=== PATIENT | female | born 1995 | race Caucasian/White ===

== ENCOUNTER 2018-10-30 12:31 | Outpatient (REF) | payer MEDICAID, SELFPAY | END 2018-10-30 12:51 | LOC: NCHCN 12:31 | PROVIDERS: PCP Internal Medicine; Visit Provider Internal Medicine | DX: J02.9 Acute pharyngitis, unspecified (principal) | CPT/HCPCS: 87070 ==

== ENCOUNTER 2018-12-07 09:55 | Outpatient (REF) | payer MEDICAID, SELFPAY ==
--- NOTE | 2018-12-07 09:25 | PAPFT_PTH ---
PATIENT: Roxie Bello LOC: [facility] U#:[id number] AGE/SX: 23/F ROOM: RE12/07/[address]: Laura Paul NP : 1995 BED: DIS: 12/07/2018 SPEC #: [id number] RECD: 12/07/18 12:47 STATUS: DANNA MANZO #: [id number] BONI: 12/07/18 09:[address]: Laura Paul NP DEPT: [facility] Cytology RECD BY: Maggi Fermin ENTERED: 12/07/18 12:48 SP TYPE: PAPFT OTHR DR: Suraj Knowles Tissues: 1 - CX/ENDOCX FOR PAP SMEARS Procedures: PAP THIN PREP/UVM Screening HPV DNA PROBE Comments: [id number]
== END 2018-12-07 10:15 ==
LOC: LBN 09:55
PROVIDERS: PCP Internal Medicine; Visit Provider Nurse Practitioner Women's Health
DX: Z12.4 Encounter for screening for malignant neoplasm of cervix (principal)
CPT/HCPCS: 88142; 87624

== ENCOUNTER 2019-03-19 13:22 | Outpatient (REF) | payer MEDICAID, SELFPAY ==
[2019-03-21 14:16] LABS: Chlamydia Result Negative (Negative)
[2019-03-21 16:31] LABS: GC Result Negative (Negative)
== END 2019-03-19 13:42 ==
LOC: NCHCN 13:22
PROVIDERS: PCP Internal Medicine; Visit Provider Nurse Practitioner Family
DX: Z11.3 Encounter for screening for infections with a predominantly sexual mode of transmission (principal)
CPT/HCPCS: 87491; 87591

== ENCOUNTER 2020-11-23 01:27 | Outpatient (CLI) | payer MEDICAID, SELFPAY ==
--- NOTE | 2020-11-23 07:15 | DI.US_ITS ---
Exam(s) US BREAST LT COMPLETE US BREAST RT COMPLETE EXAM: US BREAST BILATERAL COMPLETE CLINICAL HISTORY: increased breast tenderness, R>L. TECHNIQUE: Complete ultrasound of BOTH breasts was performed including all 4 quadrants, the retroare olar regions, and the axillary regions. COMPARISON: No prior mammograms. Patient is 25 years old is complaining about pre menses breast ten derness. FINDINGS: There is no evidence of solid or significant cystic lesions in all 4 quadrants of both breasts. Both retroareolar regions are negative No findings in the right axilla. The left axilla there are few lymph nodes noted, largest measuring 13 x 5 millimeters. This is the side of her recent Covid injectiion. IMPRESSION: Negative bilateral breast ultrasound Few small lymph nodes are noted left axilla. This is a sign of a recent vaccination 4 Covid-19 BI-RADS Category 2 - Benign Findings Breast Density - Category D - Extremely dense Breast density Category C or D implies that the patient has dense breast tissue. Dense breast tissue can make it harder to find cancer on a mammogram. Dense breast tissue is also associated with an incr eased risk of breast cancer. This information about the result of the mammogram report was provided to the patient to raise their awareness. Use this report when you speak with the patient about their risks for breast cancer, which includes their family history. At that time, you may recommend additional screening tests (Ultrasoun d or MRI) as these tests may add significant information. A negative radiographic report should not delay biopsy if a dominant or clinically suspicious mass is present. Up to ten percent of cancers are not identified on mammography. A negative report may reinforce clinical impression. Adenosis and dense breasts may obscure an underlying neoplasm. False positive reports average 6 to 10%. Patient will receive a letter notifying them of these results.
== END 2020-11-23 01:47 ==
PROVIDERS: PCP Internal Medicine; Visit Provider Nurse Practitioner Women's Health
DX: N60.11 Diffuse cystic mastopathy of right breast (principal); N60.12 Diffuse cystic mastopathy of left breast; R92.8 Other abnormal and inconclusive findings on diagnostic imaging of breast
CPT/HCPCS: 76642

== ENCOUNTER 2021-12-12 02:42 | Emergency (ER) | payer MEDICAID, SELFPAY ==
--- NOTE | 2021-12-12 02:44 | W.ED.GENAD ---
Discharge Plan Disposition Patient Disposition: HOME Condition: Stable Discharge Details Clinical Impression: Broken tooth, Infected dental caries Primary Care Provider: Suraj Knowles ED Provider: Lavinia Gifford Home Meds and New Rx's Prescriptions: New penicillin V potassium 500 mg tablet 500 mg PO QID 7 Days Qty: 28 0RF Continued norgestimate-ethinyl estradiol [Sprintec (28)] 0.25-35 mg-mcg tablet 1 tab PO DAILY Qty: 84 4RF Discharge Instructions Instructions: Dental Caries (ED), Acute Dental Trauma (ED) Additional Instructions: Your symptoms may be due to developing dental infection or secondary to nerve pain from your broken tooth. Drink plenty of fluids and get plenty of rest. Alternate tylenol and motrin as needed and directed for pain. Take the tramadol for pain not relieved with Tylenol or Motrin. A prescription for penicillin has been sent electronically to [facility] in [facility]. Call your dentist on Monday for follow-up. Return immediately to the emergency department if you develop any worsening or new concerning symptoms. Discharge Data Discharge Physician: Lavinia Gifford Medical Decision Making 26-year-old female presents with right lower dental pain for the past 2 days. She reports a history of broken teeth in this area 1 year ago but has not had pain until the past 2 days. Denies fever. She has fillings noted in teeth #29-32 right lower jaw. #31-32 are broken with missing parts and tender to palpation with mild surrounding edema but no obvious abscess. Normal oropharynx. No drooling, trismus or submandibular swelling. Will cover with prophylactic antibiotics. We will give tramadol bottle to go. Patient advised to call her dentist on Monday for follow-up. Usual and customary return precautions given prior to discharge. Medical Records Medical records reviewed: Yes I reviewed the patient's medical records. HPI General Mode of arrival: ambulatory. Date/Time Provider Initiated Documentation: 12/12/21 02:43. Limitations to Documentation: no limitations. Information obtained by: patient. HPI Narrative: Patient is a 26-year-old female presents with right lower dental pain for the past 2 days, worse this morning. Patient states she broke her teeth in the right lower jaw a year ago but has not had pain until the past 2 days. She denies any known fever. She denies any relief ibuprofen or Tylenol. Related Data Home Medications Medication Instructions Recorded Confirmed norgestimate 0.25 mg-ethinyl 1 tab PO DAILY #84 tabs 11/16/21 12/12/21 estradiol 35 mcg tablet (Sprintec (28)) penicillin V potassium 500 mg 500 mg PO QID 7 days #28 tabs 12/12/21 tablet Previous Rx's Medication Instructions Recorded norgestimate 0.25 mg-ethinyl 1 tab PO DAILY #84 tabs 11/16/21 estradiol 35 mcg tablet (Sprintec (28)) penicillin V potassium 500 mg 500 mg PO QID 7 days #28 tabs 12/12/21 tablet Allergies Allergy/AdvReac Type Severity Reaction Status Date / Time No Known Allergies Allergy Verified 12/12/21 02:53 General Stated Complaint: DentalOral Review of Systems All systems reviewed & are unremarkable except as noted in HPI and below Constitutional Constitutional: Reports as per HPI, Denies chills and Denies fever(s) Eyes Eyes: Denies blurry vision ENT Ears, Nose, Mouth, and Throat: Denies dizziness, Denies sore throat and Denies throat swelling Cardiovascular Cardiovascular: Denies chest pain and Denies dyspnea Respiratory Respiratory: Denies cough and Denies dyspnea Gastrointestinal Gastrointestinal: Denies abdominal pain, Denies diarrhea and Denies vomiting Genitourinary Genitourinary: Denies hematuria and Denies dysuria Musculoskeletal Musculoskeletal: Denies back pain and Denies numbness Integumentary/Breasts Skin/Breast: Denies lesions and Denies rash Neurologic Neurologic: Denies dizziness, Denies localized weakness and Denies numbness Allergic/Immunologic Allergic/Immunologic: Denies throat swelling PFSH All Active Problems (Updated 12/12/21 @ 03:07 by Lavinia Gifford DO) Broken tooth (Acute) Infected dental caries (Acute) Initiation of OCP (BCP) (Acute) 12/2020. Unsuccessful. Pt reports feeling aggressive while using pills for a week. Stopped after a week. Medical History (Updated 12/12/21 @ 03:07 by Lavinia Gifford DO) Contraception Initially used OCPs, Nexplanon for 1.5yrs removed with irreg bleeding. 12/2020 OCPs x1w made her tuttle. 03/2021. Using condoms. Mastalgia 12/2020 resolved after taking OCPs for one week. Surgical History (Updated 12/12/21 @ 03:07 by Lavinia Gifford DO) History of tonsillectomy Family History (Updated 12/07/18 @ 09:36 by Laura Paul NP) Brother Asthma Sister Asthma Maternal Grandfather Stomach cancer Social History (Updated 12/07/18 @ 09:39 by Laura Paul NP) Smoking/Tobacco Use Status: Never Smoking risk assessment performed?: Yes Alcohol Intake: current Alcohol Intake frequency: a few times a week Counseling given: No (pt declined) Drug use: Daily Substance use type: marijuana Do you feel safe in your relationship?: Yes Female Reproductive History Menstrual control method: none and condoms History History 0 Para Hx # Term Pregnancies Multiple births Hx # Pregnancies Ectopic pregnancies AB induced Hx Number of Living Children AB spontaneous Exam Const General: cooperative, healthy appearing and no acute distress Orientation: alert, awake and oriented x3 HENMT Head: normal to inspection Ears: hearing grossly normal bilaterally, external ears normal and TM's normal bilaterally General nose exam: external nose normal Mouth: oral mucosae normal Teeth image: 1. Broken and missing parts of teeth. There is surrounding tenderness to palpation and mild edema but no fluctuance, induration, pus drainage or bleeding. Throat: posterior oropharynx normal Eyes General: appearance normal, both eyes and all related structures Neck Neck: normal visual inspection Resp Effort & Inspection: normal respiratory effort and able to speak in complete sentences Cardio Rate: regular rate Skin General skin exam: no rashes or lesions noted Neuro General: patient alert, patient awake and patient oriented x3 Motor: muscle tone normal throughout Extrem General: normal to inspection and full ROM Psych Appearance: grossly normal Affect: normal affect
[2021-12-12 02:49] VITALS: BP 138/90; PULSE 52; RESP 16; TEMP 36.9; O2SAT 100
--- OUTSIDE RECORDS SUMMARY | 2021-12-12 02:50 | XMS_ITS | Encounter Summary ---
:1995 Author Organization [place] [address] Care Team Providers Name Role Phone Suraj Knowles MD Primary Care Provider Reason for Referral Consultation (Routine) - Duplicate Referral Specialty Diagnoses / Procedures Referred By Contact Refer red To Contact Sleep Center Diagnoses Excessive daytime sleepiness Mariana Webb MD [facility] Sleep Medicine [facility] [address] [place]EP [place] [address] [place] [address] Referral ID Status Reason Start Expiration Visits Visits Date Date Requested Authorized [id number] Duplicate Test Only 11/23/2017 11/23/2018 1 1 Referral Encounter Details Date Type Department Care Team Description 11/23/2017 Telephone Sleep Center at [facility] Kacy Dawkins [address] [place] [address] Social History Tobacco Use Types Packs/Day Years Used Date Never Smoker Smokeless Tobacco: Never Used Sex Assigned at Date Recorded Not on file documented as of this encounter Miscellaneous Notes Telephone Encounter - Mariana Webb MD - 11/23/2017 2:50 PM EDT Will order PSG Mariana Webb MD Telephone Encounter - Kacy Dawkins - 11/23/2017 1:43 PM EDT Please write the sleep study order for this patient originally seen with Dr. Rees, scheduled on 11/29. 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
--- OUTSIDE RECORDS SUMMARY | 2021-12-12 02:50 | XMS_ITS | Encounter Summary ---
:1995 Author Organization [facility] [place] [address] Care Team Providers Name Role Phone Suraj Knowles MD Primary Care Provider Reason for Visit Reason Comments Other tonsilitis Encounter Details Date Type Department Care Team Description 06/15/2018 Office Visit Otolaryngology at [facility] Camelia Carranza MD Throat pain; [facility] Bruxism (teeth grinding) [place] [address] [place] [address] OTOLARYNGOLOGY [place], [place] [address] Social History Tobacco Use Types Packs/Day Years Used Date Never Smoker Smokeless Tobacco: Never Used Sex Assigned at Date Recorded Not on file documented as of this encounter Last Filed Vital Signs Vital Sign Reading Time Taken Comments Blood Pressure - - Pulse - - Temperature - - Respiratory Rate - - Oxygen Saturation - - Inhaled Oxygen Concentration - - Weight 66.3 kg (146 lb 1.6 oz) 06/15/2018 1:38 PM EST Height 172.7 cm (5' 8) 06/15/2018 1:38 PM EST Body Mass Index 22.21 06/15/2018 1:38 PM EST documented in this encounter Progress Notes Camelia Carranza MD - 06/15/2018 1:40 PM EST [facility] Otolaryngology - Head and Neck Surgery Camelia Carranza MD 06/15/18 1:51 PM [place], [place] [address] Office Patient Name: Roxie Bello Date of : 1995 PCP: Suraj Knowles MD Chief Complaint: throat pain History of Present Illness: Roxie Bello is a 22 y.o. year old female seen in follow up. Has been seen in our clinic previously with chronic throat pain. Does get tonsil stones at times. States she has a sore throat several times per week, it usually resolves after a day or so. No issues with recurrent tonsillitis other than the past few months. Has a h/o hypersomnia, but sleep study without evidence of sleep apnea. Does grind her teeth, is currently getting fitted for a mouthguard. Has been on antibiotics several times in the last few months, states this has not improved her throat pain. No dysphagia or odynophagia. No hemoptysis or hematemesis. Otherwise doing well. 10 point Review of Systems was normal except for pertinent positives and negatives included in the History of Present Illness. Past Medical and Surgical History Patient Active Problem List Diagnosis Code ??? Hypersomnia G47.10 Current Outpatient Medications on File Prior to Visit Medication Sig Dispense Refill ??? SF 5000 PLUS 1.1 % Cream 1 Units as needed. 0 ??? etonogestrel (NEXPLANON) 68 mg Implant 68 mg by Subdermal route Continuous (Device). Expected removal date 09/2019 ??? citalopram (CELEXA) 40 mg Tablet 0 ??? NASAL SPRAY 0.05 % [place], Non-Aerosol 0 ??? multivitamin (THERAGRAN) Tablet Take 1 tablet by mouth daily. No current facility-administered medications on file prior to visit. Allergies: Patient has no known allergies. Surgical History: No past surgical history on file. Family and Social History Family History: No family history on file. Social History: [place] [address] Social History Socioeconomic History ??? Marital status: Single Spouse name: Not on file ??? Number of children: Not on file ??? Years of education: Not on file ??? Highest education level: Not on file Social Needs ??? Financial resource strain: Not on file ??? Food insecurity - worry: Not on file ??? Food insecurity - inability: Not on file ??? Transportation needs - medical: Not on file ??? Transportation needs - non-medical: Not on file Occupational History ??? Not on file Tobacco Use ??? Smoking status: Never Smoker ??? Smokeless tobacco: Never Used Substance and Sexual Activity ??? Alcohol use: Not on file ??? Drug use: Not on file ??? Sexual activity: Not on file Other Topics Concern ??? Not on file Social History Narrative ??? Not on file Physical Exam Temperature: Heart Rate: Blood Pressure: Respiratory Rate: SpO2: General: Age appropriate, healthy appearing, well-groomed, independently mobile. Communicates easily, speech clear, voice is strong. Awake, alert, and oriented to person, place and time. Affect appropriate. Head and Face: Head is normocephalic, atraumatic. Facial resting tone symmetric. Eyes: Conjugate gaze, ocular motility intact bilaterally. PERRL. Neurologic: Cranial Nerves II-XII grossly intact and symmetric. Ears: External ear and ear canal are without deformity. Hearing is grossly normal. Nose: External nose is midline without deformity or lesion. Anterior rhinoscopy reveals a straight septum, healthy mucosa, turbinates normal in size. Oral: There are no visible or palpable buccal, gingival, lingual, or palatal lesions. The floor of mouth is soft and flat. Dentition is in good repair. Oropharynx: Symmetric without tonsillar pathology. Tonsils 2+ and cryptic, no erythema or exudate. No other concerning lesions or masses Larynx:No hoarseness or stridor. External laryngeal structures normal to palpation. Face and sinuses are non tender. Salivary glands are soft, non tender, without palpable masses. [place]eter tightening noted bilaterally. Neck: Symmetric. No scars, palpable masses, or crepitus. Midline trachea. Thyroid normal in size, non tender, no palpable mass. Lymphatic: no palpable cervical lymphadenopathy. Pulmonary: Breathing comfortably. Symmetric chest expansion without use of accessory muscles or retraction. Skin: Good skin turgor, no pallor, no icterus. Extremities: No gross deformities, no peripheral edema. ASSESSMENT & RECOMMENDATIONS Roxie Bello is a 22 y.o. female with chronic throat pain, ?chronic tonsillitis. Given her poor response to antibiotics, I'm not convinced that her pain is due to classic tonsillitis. She may have generalized throat and neck pain related to her TMJ/teeth grinding. Recommendations: 1. I've recommended seeing how she does once she is fitted for her mouth guard. If no improvement after a month or so, she will notify me and we can discuss tonsillectomy then. Otherwise f/u prn. 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
--- OUTSIDE RECORDS SUMMARY | 2021-12-12 02:50 | XMS_ITS | Encounter Summary ---
:1995 Author Organization [facility] [place] [address] Care Team Providers Name Role Phone Suraj Knowles MD Primary Care Provider Encounter Details Date Type Department Care Team Description 02/22/2018 Office Visit Sleep Center at Mariana Webb MD Excessive daytime [address] [facility] sleepiness [address] [place] SLEEP DISORD[place] [address] CENTER [phone] [place], [place] [address] (Wo rk) Social History Tobacco Use Types Packs/Day Years Used Date Never Smoker Smokeless Tobacco: Never Used Sex Assigned at Date Recorded Not on file documented as of this encounter Last Filed Vital Signs Vital Sign Reading Time Taken Comments Blood Pressure 112/64 02/22/2018 10:10 AM EDT Pulse 68 02/22/2018 10:10 AM EDT Temperature - - Respiratory Rate - - Oxygen Saturation 100% 02/22/2018 10:10 AM EDT Inhaled Oxygen Concentration - - Weight 64.9 kg (143 lb) 02/22/2018 10:10 AM EDT Height 172.7 cm (5' 8) 02/22/2018 10:10 AM EDT Body Mass Index 21.74 02/22/2018 10:10 AM EDT documented in this encounter Progress Notes Mariana Webb MD - 02/22/2018 10:00 AM EDT SLEEP MEDICINE FOLLOW UP Chief Complaint: Follow up for excessive daytime sleepiness HPI: Roxie Mcdermott Eugenia is a 22 y.o. female with chronic pharyngitis, tonsillar hypertrophy, anxiety/depression, presenting for follow up of excessive daytime sleepiness. Previous testing ruled out obstructive sleep apnea as a factor of her symptoms. Summary of Sleep Studies 10/2017 HST Non-diagnostic 11/2017 Diagnostic PSG AHI 3 ([facility] AHI 0.5) The patient states that since last visit, she has tried to extend her sleep hours, and was successful by approximately half an hour. Currently she gets about 8 hours of sleep, from 10pm-6am nightly. She continues to feel sleepiness daily, despite the change. Further Details: Severity: Severe sleepiness Frequency: Daily - especially while as a passenger in the car Also feels sleepy if needing to drive long distances Duration: Throughout the day Over time: No improvement despite changes. Has become more tired in the last year. Modifying factors: None known The sleepiness was initially noticed by her father around last year. She is unable to pinpoint any precipitating factors or events that started with the sleepiness. She denies any coinciding of the sleepiness with changes in her citalopram. Ms. Bello also notes that she continues to suffer from chronic pharyngitis and sore throat. She has not experienced any new infections recently. She is currently deciding on whether or not to have the electively removed. Questionnaires: Patient-reported scores: [facility] 02/22/2018 [facility] 8 Insomnia Severity Index 11 (Subthreshold insomnia) [facility] 10/25/2017 02/22/2018 [facility] 15 (High Risk) 8 Insomnia Severity Index 13 (Subthreshold insomnia) 11 (Subthreshold insomnia) ROS: CON: weight change: stable ENT: nasal obstruction: no, + frequent sore throat PUL: CIFUENTES: no CV: chest pain: no GI: GERD: no : Nocturia: no PSY: Depression: stable on medications Anxiety: stable Problem List: Patient Active Problem List Diagnosis Code ??? Hypersomnia G47.10 Past Medical History: Past Medical History: Diagnosis Date ??? Hypersomnia 12/08/2017 Medications: Current Outpatient Medications on File Prior to Visit Medication Sig Dispense Refill ??? NASAL SPRAY 0.05 % [place], Non-Aerosol 0 ??? multivitamin (THERAGRAN) Tablet Take 1 tablet by mouth daily. ??? citalopram (CELEXA) 40 mg Tablet 0 ??? [DISCONTINUED] penicillin v potassium (VEETID) 500 mg Tablet take 1 tablet by mouth twice a day for 10 days 0 ??? [DISCONTINUED] azithromycin (ZITHROMAX) 250 mg Tablet take 2 tablets by mouth today then take 1 tablet DAILY FOR 4 DAYS 0 No current facility-administered medications on file prior to visit. Family History: Grandfather - sleep apnea Physical Exam: Vitals: BP 112/64 (BP Location (NBP): Right arm, Patient Position: Sitting, BP Cuff Sizes: Adult (25-34 cm)) Pulse 68 Ht 172.7 cm (5' 8) Wt 64.9 kg (143 lb) SpO2 100% BMI 21.74 kg/m?? General: pleasant 22 y.o. female, no distress, but appears tired HEENT: Head- normocephalic, Eyes- EOMI Pharynx- no tonsillitis, cobblestoning of posterior wall Heart: Normal heart sounds, at regular rate, no murmurs Lungs: CTA bilaterally, good respiratory effort Neuro: No tics/tremors No gait abnormalities Psych: Appropriate affect Assessment: Roxie Bello is a 22 y.o. female seen in follow-up for symptoms of persistent excessive daytime sleepiness. The patient has tried sleep extension, without significant effect in her symptoms. For her age group, the patient may try further sleep extension towards 9 hours nightly. Sleep apnea was ruled out as a cause of her sleepiness. Diagnoses including narcolepsy or idiopathichypersomnia can be considered in this age group. She does not endorse any classic symptoms of narcolepsy, cataplexy, sleep paralysis, or sleep hallucinations at this time. Testing would include repeating an overnight polysomnogram followed immediately by an MSLT with urine drug testing. An actigraphy would be completed 2 weeks before the MSLT. Of note, the patient takes an SSRI, which may affect testing if desired. Testing on the medication may proceed if she is unable to wean off the medication. The patient is also deciding on whether or not to proceed with elective tonsillectomy. Chronic illness may be a contributing factor to chronic fatigue and sleepiness. The patient would like to be re-evaluated by ENT to pursue this further. She will decide on PSG/MSLT after possible intervention with ENT. Recommendations: 1) Re-evaluation with ENT for elective tonsillectomy 2) PSG with MSLT after tonsillectomy if sleepiness persists 3) Patient will need to coordinate/discuss weaning from SSRI if further testing desired 4) Trial of sleep extension to 9 hours/night Patient voices understanding and acceptance of this advice and will call back if any further questions or concerns. Discussed with attending Dr. Braun. Mariana Webb MD Sleep Fellow CC: Suraj Knowles MD Shayla Braun MD - 02/22/2018 10:00 AM EDT I evaluated Ms. Roxie Bello with Dr. Webb and performed romano aspects of the history and examination. I actively participated in the formulation of the management strategy. I have reviewed Dr. Webb's note and agree with the assessment and recommendations. Patient is debating about whether to proceed with tonsillectomy due to symptoms. We discussed further evaluation for a primary hypersomnia. She is currently on an SSRI which may reduce detection of REM sleep during naps; however, given her mood stability on this medication, stopping it does not seem like the best option. Plan: Patient to contact ENT and will decide if tonsillectomy will be done. When done (or if she elects not to do) and persistent hypersomnia is evident, then proceed to sleep logs, actigraphy, followed by PSG and MSLT (based on her normal sleep schedule). She will call to letus know. SHAYLA BRAUN MD documented in this encounter Plan of Treatment Not on filedocumented as of this encounter Visit Diagnoses Diagnosis Excessive daytime sleepiness documented in this encounter Care Teams Fitter'S Assistant Relationship Specialty Start Date End Date Suraj Knowles MD PCP - General Internal Medicine 08/02/17 [address] [place] [address] documented as of this encounter
--- OUTSIDE RECORDS SUMMARY | 2021-12-12 02:50 | XMS_ITS | Encounter Summary ---
:1995 [place] [address] Care Team Providers Name Role Phone Suraj Knowles MD Primary Care Provider Reason for Referral Consultation (Routine) - Duplicate Referral Specialty Diagnoses / Procedures Referred By Contact Refer red To Contact Sleep Center Diagnoses Enlarged tonsils Mariana Webb MD [facility] Sleep Medicine [facility] [address] [place] [address] [place] [address] Referral ID Status Reason Start Expiration Visits Visits Date Date Requested Authorized [id number] Duplicate Test Only 11/23/2017 11/23/2018 1 1 Referral Encounter Details Date Type Department Care Team Description 11/23/2017 Orders Only Sleep Center at [facility] Mariana Webb MD Enlarged tonsils [facility] [address] [place] [address] [place] [address] [phone] (Wo rk) Social History Tobacco Use Types Packs/Day Years Used Date Never Smoker Smokeless Tobacco: Never Used Sex Assigned at Date Recorded Not on file documented as of this encounter Progress Notes Mariana Webb MD - 11/23/2017 2:52 PM EDT Polysomnogram Order Form Room # Technologist Assignment: To be read by on PSG Patient Information Date of study: : 1995 Arrival Time: Name: Roxie Bello 22 y.o. female with anxiety/depression and chronic pharyngitis who presents from ENT for sleep study, considering possible tonsillectomy Height: 172.7 cm (5' 8) Weight: 64.3 kg (141 lb 12.8 oz) Normal Sleep Hours: 10PM - 6:30AM Physical/Mobility Limitations: No Cognitive Limitations: No Requires Male Tech: No Requires Female Tech: No Requires 1:1 Care: No Requires Parent/Caregiver: No Using Home Oxygen: No At home sleeps in: Bed PSG Indications: Snoring, daytime sleepiness, enlarged tonsils. Non-diagnostic HST Other Medical Conditions: Anxiety/depression, chronic pharyngitis PSG Orders Type of study: Diagnostic PSG, split for AHI >30 (CMS >10) Additional data required: None Special instructions: Start CPAP *Initiate CPAP/BPAP/oxygen per previously determined protocols unless otherwise specified. documented in this encounter Plan of Treatment Scheduled Referrals Name Type Priority Associated Diagnoses Order S chedule Referral to Sleep Outpatient Referral Routine Enlarged tonsils Ordered: [facility] 11/23/2017 documented as of this encounter Visit Diagnoses Diagnosis Enlarged tonsils Hypertrophy of tonsils alone documented in this encounter Care Teams Block Press Operator Relationship Specialty Start Date End Date Suraj Knowles MD PCP - General Internal Medicine 08/02/17 [address] [place] [address] documented as of this encounter
--- OUTSIDE RECORDS SUMMARY | 2021-12-12 02:50 | XMS_ITS | Clinical Summary ---
:1995 Author Organization [facility] [place] [address] Care Team Providers Name Role Phone Suraj Knowles MD Primary Care Provider Allergies No known active allergies Medications Medication Sig Dispensed Refills Start Date End Date Status citalopram (CELEXA) 0 09/09/2017 Active 40 mg Tablet NASAL SPRAY 0.05 % 0 06/09/2017 Active [place], Non-Aerosol multivitamin Take 1 tablet by 0 Active (THERAGRAN) Tablet mouth daily. SF 5000 PLUS 1.1 % 1 Units as needed. 0 01/22/2018 Active Cream etonogestrel 68 mg by Subdermal 0 Active (NEXPLANON) 68 mg route Continuous Implant (Device). Expected removal date 09/2019 Active Problems Problem Noted Date Throat pain 06/18/2018 Bruxism (teeth grinding) 06/18/2018 Hypersomnia 12/08/2017 Social History Tobacco Use Types Packs/Day Years Used Date Never Smoker Smokeless Tobacco: Never Used Sex Assigned at Date Recorded Not on file Last Filed Vital Signs Vital Sign Reading Time Taken Comments Blood Pressure 112/64 02/22/2018 10:10 AM EDT Pulse 68 02/22/2018 10:10 AM EDT Temperature - - Respiratory Rate 16 11/29/2017 8:00 PM EDT Oxygen Saturation 100% 02/22/2018 10:10 AM EDT Inhaled Oxygen Concentration - - Weight 66.3 kg (146 lb 1.6 oz) 06/15/2018 1:38 PM EST Height 172.7 cm (5' 8) 06/15/2018 1:38 PM EST Body Mass Index 22.21 06/15/2018 1:38 PM EST Plan of Treatment Health Maintenance Due Date Last Done Comments Covid-19 Vaccine (#1) 2002 HPV vaccine (1 - 2-dose series) 2008 Chlamydia Screening, female 15-25 2012 HIV screen 09/23/2015 Hepatitis C Screening 09/23/2015 Tdap adult 2016 Tetanus vaccine 2016 PAP Smear 2018 Influenza (Flu) vaccine (1 of 1 - Influenza standard 01/06/2022 series) Insurance Payer Benefit Plan / Subscriber ID Effective Dates Phone Addre ss Type Group [place] [id number] 2018-Pres [phone] [address] PRIMARY CARE ent [address] [place] [id number] Care Teams Statistical Secretary Relationship Specialty Start Date End Date Suraj Knowles MD PCP - General Internal Medicine 08/02/17 [address] [place], [place] [id number]
--- OUTSIDE RECORDS SUMMARY | 2021-12-12 02:51 | XMS_ITS | Encounter Summary ---
:1995 Author Organization [facility] [place] [address] Care Team Providers Name Role Phone Suraj Knowles MD Primary Care Provider Reason for Visit Reason Comments Schedule Office Case Tonsils swollen x few month s Consultation (Routine) - Closed Specialty Diagnoses / Procedures Referred By Contact Refer red To Contact Otolaryngology Diagnoses Pharyngitis recurrent Suraj Knowles MD Porter, Amber L, HOT PATCHER [address] [place] [address] [address] [facility] [place], [place] [address] Phone: Fax: Referral ID Status Reason Start Date Expiration Date Visits V isits Requested Authorized [id number] Closed Consult, 10/03/2017 10/03/2018 1 1 Test & Treat Connection Center Encounter Details Date Type Department Care Team Description 10/13/2017 Office Visit Otolaryngology at [facility] Anabel Dozier, Throat pain in adult [facility] [place] [address] [facility] [phone] [place], [place] [address] Social History Tobacco Use Types Packs/Day Years Used Date Never Smoker Smokeless Tobacco: Never Used Sex Assigned at Date Recorded Not on file documented as of this encounter Last Filed Vital Signs Vital Sign Reading Time Taken Comments Blood Pressure - - Pulse - - Temperature - - Respiratory Rate - - Oxygen Saturation - - Inhaled Oxygen Concentration - - Weight 64.3 kg (141 lb 12.8 oz) 10/13/2017 10:21 AM EDT Height 172.7 cm (5' 8) 10/13/2017 10:21 AM EDT Body Mass Index 21.56 10/13/2017 10:21 AM EDT documented in this encounter Progress Notes Anabel Dozier, HOT PATCHER - 10/13/2017 10:00 AM EDT Images from the original note were not included. Subjective: Patient ID: Roxie Bello is a 22 y.o. female. HPI Referred by Suraj Knowles MD Recurrent pharyngitis with incomplete evaluation of posterior oropharynx given fullness of BOT/airway morphology. Referred for further evaluation. She has been treated for recurrent pharyngitis with antibiotics over the last 2 3 months. This presents as throat pain, sensation of swelling, and difficulty swallowing. She has been found to have enlarged tonsils, and she describes that they occasionally have had white spots on them. She has a history of snoring and is undergoing a sleep study later this month. She has no voice changes, no jaw or face pain, no ear pain, no neck swelling. She is a non-smoker. Review of Systems Constitutional: Negative for fever and unexpected weight change. HENT: Positive for sore throat. Respiratory: Negative for cough and shortness of breath. Musculoskeletal: Negative for neck pain and neck stiffness. Hematological: Negative for adenopathy. Objective: Physical Exam Constitutional: She appears well-developed. No distress. HENT: Head: Normocephalic. Right Ear: Tympanic membrane, external ear and ear canal normal. Left Ear: Tympanic membrane, external ear and ear canal normal. Nose: Rhinorrhea present. No mucosal edema. Mouth/Throat: Uvula is midline and oropharynx is clear and moist. No oral lesions. No trismus in thejaw. No posterior oropharyngeal erythema. Procedure Note: Flexible Fiberoptic Laryngoscopy: Topical anesthetic and decongestant applied to the nasal cavity. Patient tolerated the procedure well without any complications. Findings: Nasal cavity : anterior examination reveals septum (midline), turbinates non- edematous,no evidence of neoplastic process such as polyps, no mucopurulent drainage, clear drainage throughout Nasopharynx: clear without masses or lesions. Notable adenoid pad. 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 Larynx: base of tongue normal, valleculae is clear, epiglottis normal shape and contour without erythema or edema, vocal cords normal without evidence of irritation, discrete lesion or paralysis. Post-cricoid region normal. Piriform sinuses are clear. Hypopharynx:unremarkable. Assessment and Plan: Chronic pharyngitis, snoring (sleep study pending), and throat pain with tonsillar enlargement on exam. No neoplastic process in evidence. Some evidence of allergic rhinitis. Will treat with salt watergargles bid and flonase. RTC in 2 months for re-evaluation and consideration of additional treatments, which may include surgery. Gregoria Encinas RN - 10/13/2017 10:00 AM EDT Throat feels sore documented in this encounter Plan of Treatment Not on filedocumented as of this encounter Visit Diagnoses Diagnosis Throat pain in adult documented in this encounter Care Teams Legend Maker Relationship Specialty Start Date End Date Suraj Knowles MD PCP - General Internal Medicine 08/02/17 [address] [place] [address] documented as of this encounter
--- OUTSIDE RECORDS SUMMARY | 2021-12-12 02:51 | XMS_ITS | Encounter Summary ---
:1995 Author Organization [facility] [place] [address] Care Team Providers Name Role Phone Suraj Knowles MD Primary Care Provider Reason for Referral Consultation (Routine) - Closed Specialty Diagnoses / Procedures Referred By Contact Refer red To Contact Sleep Center Diagnoses Excessive daytime sleepiness Snoring Vijaya Rees MD [facility] Procedures PRG POLYSOM 6+ YRS SLEEP W 4+ ADDL LINDA [facility] [address] [place] [address] [place] [address] Referral ID Status Reason Start Date Expiration Date Visits V isits Requested Authorized [id number] Closed Test Only 11/23/2017 05/25/2018 1 1 Reason for Visit Consultation (Routine) - Closed Specialty Diagnoses / Procedures Referred By Contact Refer red To Contact Sleep Center Diagnoses Excessive daytime sleepiness Snoring Vijaya Rees MD [facility] Procedures PRG HOME SLEEP TEST TYPE [address] [facility] [address] [place] [address] [place] [address] Referral ID Status Reason Start Date Expiration Date Visits V isits Requested Authorized [id number] Closed Test Only 10/25/2017 10/25/2018 1 1 Encounter Details Date Type Department Care Team Description 10/26/2017 Procedure visit Sleep Center at [facility], Snoring ( Primary Dx); [facility] Juan Lilly MD Excessive daytime sleepiness [address] [place] [address] SLEEP DISORDERS [phone] [place], [place] [address] Social History Tobacco Use Types Packs/Day Years Used Date Never Smoker Smokeless Tobacco: Never Used Sex Assigned at Date Recorded Not on file documented as of this encounter Progress Notes Vijaya Rees MD - 10/26/2017 12:00 PM EDT Images from the original note were not included. REPORT OF DIAGNOSTIC HOME SLEEP TEST IDENTIFYING INFORMATION Roxie Bello : 1995 PRIMARY CARE PHYSICIAN: Suraj Knowles MD History Of Present Illness: Roxie Bello is a 22 y.o. female who presents for a polysomnogram. Limited Polysomnography: The recording includes chest/abdominal respiratory effort, nasal pressure air flow, snoring and oxygen saturation (by pulse oximeter). Comment: - Respiratory: MICHELLE 4% of 1.2 was noted with a minimum saturation of 92%. Mean saturation of 96%. 0 minutes spent with a saturation less than or equal to 88%. - Cardiac: Heart rate ranged from 47 to 73 bpm with an average heart rate of 57 bpm. - Other: Total recording time of 362 minutes. Assessment: Ms. Roxie Bello is a 22 y.o. female whose home sleep test was non-diagnostic for obstructive sleep apnea. Home sleep studies tend to underestimate the amount of obstructive sleep apnea present. In addition to the scored events, there was flow variation seen that could not be scored on ahome sleep test but is suspicious for obstructive sleep apnea. Given her symptoms and these results,further assessment with an attended in lab PSG would be appropriate at this time. The patient will be called to relay the study results. Recommendations: 1. Attended PSG CC: Suraj Knowles MD [facility] HOME SLEEP APNEA TEST REPORT Patient Name: Roxie Bello Study Date: 10/26/2017 Age & Sex: 22 y.o. Female Height: 5'8 Date of : 1995 Weight: 142 BMI: 21.6 Referring Prov.: Scoring Tech: TOMMY CARRERO Sleep Fellow: Sleep Specialist: ALBERTINA WALTERS M.D. General Test Details Type III home sleep apnea testing was performed utilizing nasal pressure, single thoracoabdominal movement, heart rate, and oxygen saturation according to established AASM guidelines. Recording Start Time: 00:57:14 Monitoring Start Time: 00:57:13 Recording End Time: 59:14 Monitoring End Time: 06:59:14 Total Recording Time (TRT): 362.0 minutes Monitoring Time (MT): 362.0 minutes Respiratory Details Respiratory Event Total Count Index (events/hr) Obstructive apnea 2 0.3 Mixed apnea 0 0.0 Central apnea 4 0.7 Sum of all apnea types 6 1.0 Hypopneas without associated desaturation 1 0.2 Hypopneas with desaturation ?4% (CMS) 1 0.2 4% Respiratory Event Index (4%MICHELLE): 1.2 *Includes the sum of all apneas and hypopneas (assoc. with desaturation of ?4%) per hour of monitoring. 4% AHI (CMS): 1.2 *Includes the sum of all apneas and hypopneas (assoc. with desaturation of ?4%) per hour of monitoring. [place] Breathin.0% of total monitoring time Minimum SpO2: 92% Average SpO2 (during TRT): 96% SpO2 ? X%: Total Time ?90% 0.0 min ?89% 0.0 min ?88% 0.0 min SpO2 Ranges: Total Time 90%-99% 355.6 min 80%-90% 0.0 min 70%-80% 0.0 min 60%-70% 0.0 min 0%-60% 0.0 min Cardiac Details Minimum Heart Rate 47 bpm Maximum Heart Rate 73 bpm Average Heart Rate 57 bpm Graphs Time Scale Respiratory Event Graph SpO2 Trend Vijaya Rees MD - 10/26/2017 12:00 PM EDT Called and left a detailed message on the patient's cell phone with results and recommendations. Left number for call back. Armando Huitron MD - 10/26/2017 12:00 PM EDT I reviewed the home sleep apnea test in its entirety. I have reviewed Dr. Rees's note and agree with the findings and recommendations. ARMANDO HUITRON MD documented in this encounter Plan of Treatment Scheduled Referrals Name Type Priority Associated Diagnoses Order S chedule Referral to Sleep Outpatient Referral Routine Excessive daytim e Ordered: Disorders Center sleepiness 10/31/2017 Snoring documented as of this encounter Visit Diagnoses Diagnosis Snoring - Primary Other dyspnea and respiratory abnormalit y Excessive daytime sleepiness documented in this encounter Care Teams Brine Supervisor Relationship Specialty Start Date End Date Suraj Knowles MD PCP - General Internal Medicine 08/02/17 [address] [place] [address] documented as of this encounter
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
[2021-12-12] MEDS: Penicillin V POTASSIUM 500 MG TAB, 4 TABS/BTL PO (03:15)
[2021-12-12] MEDS: Penicillin V POTASSIUM 500 MG TAB PO (03:15)
== END 2021-12-12 03:20 | disposition home or self-care (01) ==
PROVIDERS: Emergency Provider Physician Assistant; PCP Internal Medicine
DX: K04.7 Periapical abscess without sinus (principal); K02.9 Dental caries, unspecified; S02.5XXA Fracture of tooth (traumatic), initial encounter for closed fracture; X58.XXXA Exposure to other specified factors, initial encounter
CPT/HCPCS: 99283; 99284

== ENCOUNTER 2022-01-01 10:44 | Emergency (ER) | payer MEDICAID, SELFPAY ==
[2022-01-01 10:48] VITALS: BP 149/114; PULSE 72; RESP 20; TEMP 36.7; O2SAT 100
[2022-01-01] MEDS: Bupivacaine 0.5% Pres-Free 30 ML VIAL (11:04)
[2022-01-01] MEDS: Lidocaine 1% Multi-Dose 20 ML VIAL (11:04)
--- NOTE | 2022-01-01 11:26 | ED.GENADUL_ITS ---
Discharge Plan Disposition Patient Disposition: HOME Condition: Improving Discharge Details Clinical Impression: Broken tooth Primary Care Provider: Suraj Knowles ED Provider: Jose Henson Home Meds and New Rx's Prescriptions: Continued norgestimate-ethinyl estradiol [Sprintec (28)] 0.25-35 mg-mcg tablet 1 tab PO DAILY Qty: 84 4RF Discharge Instructions Instructions: Acute Dental Trauma (ED) Additional Instructions: I performed a dental block here in the ER and have placed a temporary dental filling. Bysc-oec-mcvmijt Tylenol and/or Motrin as directed for discomfort. Cool and/or warm compresses every 2 hours for 20 minutes. Octw-ikn-hxjxpsb medication such as Orajel for symptomatic control. Please watch for new or worsening symptoms and return to the ER for any concerns. Lastly, I recommend contacting your dentist on Monday as well as the dentist on the dental list that was provided as you will need dental extraction likely for definitive care Medical Decision Making 26-year-old female, non-smoker, presents to the ER for sudden onset of left inferior wisdom tooth pain status post fracturing it while eating breakfast this morning. She does have poor dentition throughout. She reports she does have a dentist but cannot be seen until Monday. She has not taken any medication for her symptoms. No indication of infection. Plan is to perform a dental block and provide a temporary filling. No clear indication for antibiotic therapy. We will also provide a dental list Patient tolerated the dental block and temporary filling without difficulty. Reports significant improvement of her overall discomfort. Again this is acutely traumatic, no clear indication of chronic infection or need for antibiotic therapy. We discussed the importance of proper outpatient dental follow-up as she will likely require surgical intervention for definitive care. No evidence of trismus. Airway is patent Standard discharge and return precautions were provided. Patient understands, is agreeable to this plan, and has no additional questions or concerns upon discharge. This documentation was generated using [employer] system, please disregard any oddities of phrase or misspellings. Medical Records Medical records reviewed: Yes I reviewed the patient's medical records. HPI General Mode of arrival: ambulatory . Date/Time Provider Initiated Documentation: 01/01/22 10:52 . Limitations to Documentation: no limitations . Information obtained by: patient . History of Present Illness 26 year old F presents to the emergency department with the chief complaint of Left lower dental pain, described as severe, with intensity rated at 7. Quality is described as stabbing and sharp, and is localized to the mouth. Patient repo rts no radiation. Patient started experiencing this hour(s) (2) and it has been constant. No relieving factors improve symptom(s), No exacerbating factors reported . Patient notes no other symptoms.. Patient did receive the following treatments prior to arrival, none Related Data Home Medications Medication Instructions Recorded Confirmed norgestimate 0.25 mg-ethinyl 1 tab PO DAILY #84 tabs 11/16/21 01/01/22 estradiol 35 mcg tablet (Sprintec (28)) Previous Rx's Medication Instructions Recorded norgestimate 0.25 mg-ethinyl 1 tab PO DAILY #84 tabs 11/16/21 estradiol 35 mcg tablet (Sprintec (28)) Allergies Allergy/AdvReac Type Severity Reaction Status Date / Time No Known Allergies Allergy Verified 01/01/22 11:11 General Stated Complaint: DentalOral BLAKE: 5 Review of Systems Constitutional Constitutional: Denies fever(s) ENT Ears, Nose, Mouth, and Throat: Reports mouth pain and Denies sore throat Gastrointestinal Gastrointestinal: Denies nausea and Denies vomiting Integumentary/Breasts Skin/Breast: Denies rash PFSH All Active Problems Broken tooth (Acute) Infected dental caries (Acute) Initiation of OCP (BCP) (Acute) 12/2020. Unsuccessful. Pt reports feeling aggressive while using pills for a week. Stopped after a week. Medical History Contraception Initially used OCPs, Nexplanon for 1.5yrs removed with irreg bleeding. 12/2020 OCPs x1w made her tuttle. 03/2021. Using condoms. Mastalgia 12/2020 resolved after taking OCPs for one week. Surgical History History of tonsillectomy Family History Brother Asthma Sister Asthma Maternal Grandfather Stomach cancer Social History Smoking/Tobacco Use Status: Never Smoking risk assessment performed?: Yes Alcohol Intake: current Alcohol Intake frequency: a few times a month Alcohol type: beer, wine and hard liquor Counseling given: No (pt declined) Drug use: Daily Substance use type: marijuana Do you feel safe at home: Yes Do you feel safe in your relationship?: Yes Female Reproductive History Menstrual control method: none and condoms History History 0 Para Hx # Term Pregnancies Multiple births Hx # Pregnancies Ectopic pregnancies AB induced Hx Number of Living Children AB spontaneous Exam Const General: cooperative, healthy appearing, no acute distress and other (Slightly uncomfortable) Orientation: alert and awake HENMT Head: normal to inspection, normocephalic and atraumatic Face and sinus: normal facial exam Mouth: oral mucosae normal and moist mucous membranes Teeth and gingiva: poor dentition Teeth image: 1. Nearly the entire posterior aspect of the tooth is fractured down to the buccal mucosa. Point tenderness. No erythema, swelling, discharge, signs of abscess Throat: posterior oropharynx normal Eyes General: appearance normal, both eyes and all related structures Conjunctivae: conjunctivae normal Neck Neck: normal visual inspection, full ROM, no lymphadenopathy, no meningeal signs, trachea midline, supple and nontender Resp Effort & Inspection: normal respiratory effort and able to speak in complete sentences Skin General skin exam: no rashes or lesions noted Neuro General: patient alert, patient awake, moves all extremities and no focal motor deficits Sensory Exam: no sensory deficits noted Psych Appearance: grossly normal Mental Status: mental status grossly normal Course Vital Signs Vital signs: Vital Signs Temperature 36.7 C 01/01/22 10:48 Pulse 72 01/01/22 10:48 Respiratory Rate 20 01/01/22 10:48 Blood Pressure 149/114 H 01/01/22 10:48 Pulse Oximetry 100 01/01/22 10:48 Temperature 36.7 C 01/01/22 10:48 Temperature Source Oral 01/01/22 10:48 Pulse 72 01/01/22 10:48 Respiratory Rate 20 01/01/22 10:48 Respiratory Effort Non-Labored 01/01/22 11:05 Blood Pressure 149/114 H 01/01/22 10:48 Blood Pressure Position Sitting 01/01/22 10:48 Pulse Oximetry 100 01/01/22 10:48 Oxygen Delivery Method Room Air 01/01/22 10:48 Oxygen Flow Rate 0 01/01/22 10:48 Pain Level 10 01/01/22 11:05 Procedures Nerve Block Nerve Block 1: Time out performed: Yes Local Anesthetic: Lidocaine 1%, Bupivicaine 0.5% and other anesthetic (Zrro-car-encf mixture) Amount of anesthesia used (mL): 3 Side: left Intraoral Nerve Block: inferior alveolar Procedure Successful: Yes Patient Tolerated Procedure: well and no complications Additional Comments: Also placed a Dycal radiopaque calcium hydroxide patch without complication PAWSS Have you Been Recently Intoxicated or Drunk Within the Last 30 days?: Yes Have you Ever Experienced Previous Episodes of Alcohol Withdrawal?: No Have you ever Experienced Withdrawal Seizures?: No Have you ever Experienced Delirium Tremens(DT)s?: No Have you ever undergone Alcohol Rehabilitation Treatment (i.e, inpt ot outpatient treatment programs)?: No Have you ever Experienced Blackouts?: No Have you ever Combined Alcohol with other Downers within the last 90 days?: No Have you ever Combined Alcohol with any other Substance of Abuse during the last 90 days?: No Positive Blood Alcohol level on Presentation? [PCS.BAL]: No Evidence of Increased Autonomic Activity (i.e. HR>120, tremor, sweating, agitation, nausea)?: No Result: 1
[2022-01-01 11:28] VITALS: BP 147/90; PULSE 57; RESP 18; O2SAT 98
[2022-01-01 11:29] VITALS: BP 147/90; PULSE 57; RESP 18; O2SAT 98
== END 2022-01-01 11:40 | disposition home or self-care (01) ==
PROVIDERS: Emergency Provider Physician Assistant; PCP Internal Medicine
DX: S02.5XXA Fracture of tooth (traumatic), initial encounter for closed fracture (principal); X58.XXXA Exposure to other specified factors, initial encounter; Y93.89 Activity, other specified
CPT/HCPCS: 64400; 99282; J3490

== ENCOUNTER 2022-02-15 15:30 | Outpatient (REF) | payer MEDICAID, SELFPAY ==
[2022-02-16 17:01] LABS: Chlamydia Result Negative (Negative); GC Result Negative (Negative)
== END 2022-02-15 15:31 | disposition home or self-care (01) ==
LOC: LBN 15:30
PROVIDERS: PCP Internal Medicine; Visit Provider Nurse Practitioner Women's Health
DX: Z11.3 Encounter for screening for infections with a predominantly sexual mode of transmission (principal)
CPT/HCPCS: 87491; 87591

== ENCOUNTER 2022-03-29 12:38 | Outpatient (REF) | payer MEDICAID, SELFPAY ==
--- NOTE | 2022-03-29 11:20 | PAPFT_PTH ---
PATIENT: Roxie Bello LOC: [facility] U#:[id number] AGE/SX: 26/F ROOM: RE03/29/[address]: Laura Paul NP : 1995 BED: DIS: 03/29/2022 SPEC #: [id number] RECD: 03/29/22 13:00 STATUS: DANNA REQ #: [id number] BONI: 03/29/22 11:[address]: Beverly ASHER,Laura DEPT: [facility] Cytology RECD BY: Maggi Fermin ENTERED: 03/29/22 13:01 SP TYPE: PAPFT OTHR DR: Suraj Knowles Tissues: 1 - CX/ENDOCX FOR PAP SMEARS Procedures: PAP THIN PREP/[facility] Screening Comments: [id number]
== END 2022-03-29 12:39 | disposition home or self-care (01) ==
LOC: LBN 12:38
PROVIDERS: PCP Internal Medicine; Visit Provider Nurse Practitioner Women's Health
DX: Z12.4 Encounter for screening for malignant neoplasm of cervix (principal); Z87.42 Personal history of other diseases of the female genital tract
CPT/HCPCS: 88142

== ENCOUNTER 2023-05-02 21:39 | Emergency (ER) | payer MEDICAID, SELFPAY ==
--- NOTE | 2023-05-02 21:30 | RT.EKG_ITS ---
APPROVED REPORT Exam: Resting ECG Reason for Exam: chest pain Patient Location: E HR:75 bpm ECG Measurements Heart Rate 75 AXIS MN 126 P 77 QRSd 86 QRS 83 QT 374 T 20 QTc 417 Conclusion Sinus rhythm...normal P axis, V-rate 60- 99 Physician: no stemi
[2023-05-02 21:46] VITALS: BP 123/70; PULSE 90; RESP 20; O2SAT 100
--- NOTE | 2023-05-02 22:30 | DI.RAD_ITS ---
Exam(s) XR CHEST 2V PA LATERAL EXAM: XR CHEST 2V PA LATERAL CLINICAL HISTORY: 5 months of persistent cough. TECHNIQUE: 2D digital imaging was performed. COMPARISON: No exams were available for comparison FINDINGS: 2 views: Heart size is normal. The mediastinum is not widened. Lungs are clear. No infiltrates nor pleural effusions. IMPRESSION: No acute pulmonary findings. DATA REPOSITORY: RADIATION DOSE DELIVERED:
--- NOTE | 2023-05-02 22:34 | W.ED.GENAD ---
Discharge Plan Disposition Patient Disposition: Home Condition: Good Discharge Details Clinical Impression: Cough Primary Care Provider: Suraj Knowles ED Provider: Wilson Sarmiento Home Meds and New Rx's Prescriptions: New benzonatate 100 mg capsule 100 mg PO TID Qty: 30 0RF prednisone 50 mg tablet 50 mg PO DAILY Qty: 4 0RF pantoprazole [Protonix] 40 mg tablet,delayed release (DR/EC) 40 mg PO DAILY Qty: 30 0RF No Action Liletta 20.1 mcg/24 hrs (6 yrs) 52 mg intrauterine device 1 device intrauterine ONCE Qty: 1 0RF Rx Instructions: as a single dose Discharge Instructions Instructions: Chronic Cough (ED) Additional Instructions: At this time your x-ray shows no evidence of pneumonia. No indication for antibiotics at this time. I suspect you have irritation of your bronchi that is causing the persisting cough. Please take the steroids, as well as the inhaler. For the inhaler take 2 puffs twice daily for the next 2 weeks. Additionally sometimes a small amount of reflux can cause a chronic recurrent cough. Please take Protonix which has been sent to your pharmacy to help treat this. We have also sent a cough pill called Tesdanielon Perlbalaji to your pharmacy. Please take these as needed. If you notice any worsening of your symptoms, or any new symptoms such as vomiting, diarrhea, fever, chills, shortness of breath, chest pain, numbness, weakness, or fainting , please return immediately to the emergency department for reevaluation. Please follow up with your primary care provider as soon as possible for reassessment and reevaluation. As always, it was a pleasure participating in your medical care today. Medical Decision Making 27-year-old female who has a known uterine device with a past medical history of depression, anxiety, cigar use, marijuana use, previous tobacco use, presents today for evaluation of persisting cough. Patient had pneumonia 6 months ago in September, she was treated with antibiotics and had improvement of her symptoms but then the cough came back. She was treated a second time with antibiotics but cough persists. She denies any productivity to her cough. No hemoptysis. She has been coughing so frequently for so long that she now has pain when she coughs. She denies pleuritic pain otherwise. She denies vomiting or diarrhea. No fever or chills. She denies personal or family history of PEs or blood clots. No lower extremity swelling. No other complaints at this time otherwise. Exam demonstrates a well-appearing female, no hypoxemia or tachypnea. Lung sounds are clear. Chest is nontender on palpation. Differential includes pulmonary scarring, mild reactive airway disease, less likely pneumonia. Will get a chest x-ray to rule out mass or pneumonia. Symptoms appear inconsistent with PE clinically at this current time. No long trips, surgeries or procedures. No family or personal history of PE/DVT. Will give steroids, Symbicort inhaler, monitor closely and reassess. 12:15 AM Chest x-rays returned negative for acute process. Patient remained stable. No signs of significant distress. No evidence of pneumonia we will treat for reactive airway components. We will give prednisone, Symbicort inhaler, and Tessalon Perles. Additionally concern for potential reflux that may be causing this chronic cough. Will start the patient on Protonix as well. Patient will be discharged home. Discussed red flags which to return. Additionally I did encourage the patient to stop smoking marijuana and cigars. I have extensively reviewed the treatment plan and discharge instructions with the patient and their family. I have addressed all patient concerns at this time. The patient and family was made aware of what symptoms to monitor for that would warrant a return to the emergency department. Discussed the plan with the patient and family, they demonstrate verbal understanding and agreement with our assessment and plan at this time. The documentation in this chart was dictated using [employer] dictation software. Please excuse any dictation errors. FINDINGS: Lungs: Unremarkable. No consolidation. Pleural spaces: Unremarkable. No pleural effusion. No pneumothorax. Heart/Mediastinum: Unremarkable. No cardiomegaly. Bones/joints: Unremarkable. IMPRESSION: No acute findings. Thank you for allowing us to participate in the care of your patient. Dictated and Authenticated by: Shanta Rowell MD 05/03/2023 12:10 AM Eastern Time ([place] & [place]) HPI General Date/Time Provider Initiated Documentation: 05/02/23 22:10. HPI Narrative: 27-year-old female who has a known uterine device with a past medical history of depression, anxiety, cigar use, marijuana use, previous tobacco use, presents today for evaluation of persisting cough. Patient had pneumonia 6 months ago in September, she was treated with antibiotics and had improvement of her symptoms but then the cough came back. She was treated a second time with antibiotics but cough persists. She denies any productivity to her cough. No hemoptysis. She has been coughing so frequently for so long that she now has pain when she coughs. She denies pleuritic pain otherwise. She denies vomiting or diarrhea. No fever or chills. She denies personal or family history of PEs or blood clots. No lower extremity swelling. No other complaints at this time otherwise. Related Data Home Medications Medication Instructions Recorded Confirmed levonorgestrel 20.4 mcg/24 hrs (8 1 device intrauterine ONCE #1 ea 02/15/22 05/02/23 yrs) 52 mg intrauterine device (Liletta) benzonatate 100 mg capsule 100 mg PO TID #30 caps 05/02/23 pantoprazole 40 mg tablet,delayed 40 mg PO DAILY #30 tabs 05/02/23 release (Protonix) prednisone 50 mg tablet 50 mg PO DAILY #4 tabs 05/02/23 Previous Rx's Medication Instructions Recorded levonorgestrel 20.4 mcg/24 hrs (8 1 device intrauterine ONCE #1 ea 02/15/22 yrs) 52 mg intrauterine device (Liletta) benzonatate 100 mg capsule 100 mg PO TID #30 caps 05/02/23 pantoprazole 40 mg tablet,delayed 40 mg PO DAILY #30 tabs 05/02/23 release (Protonix) prednisone 50 mg tablet 50 mg PO DAILY #4 tabs 05/02/23 Allergies Allergy/AdvReac Type Severity Reaction Status Date / Time No Known Allergies Allergy Verified 05/02/23 21:45 General Stated Complaint: GenMedical BLAKE: 3 Review of Systems All systems reviewed & are unremarkable except as noted in HPI and below PFSH All Active Problems (Updated 05/02/23 @ 23:49 by Wilson Sarmiento DO) Cough (Acute) 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 12/2020 OCPs x1w made her tuttle. 03/2021. Using condoms. Mastalgia 12/2020 resolved after taking OCPs for one week. Surgical History History of tonsillectomy Family History Brother Asthma Sister Asthma Maternal Grandfather Stomach cancer Social History Smoking/Tobacco Use Status: Never Smoking risk assessment performed?: Yes Alcohol Intake: current Alcohol Intake frequency: a few times a month Alcohol type: beer, wine and hard liquor Counseling given: No (pt declined) Drug use: Daily Substance use type: marijuana Do you feel safe at home: Yes Do you feel safe in your relationship?: Yes Female Reproductive History Menstrual control method: none and condoms History History 0 Para Hx # Term Pregnancies Multiple births Hx # Pregnancies Ectopic pregnancies AB induced Hx Number of Living Children AB spontaneous Exam Narrative Exam Narrative: 1.Const: Well-nourished, Well-developed, appearing stated age 2.Eyes: PERRL, no conjunctival injection, and symmetrical lids. 3.ENT: Atraumatic external nose and ears. Moist MM. Neck: Symmetric, trachea midline, No thyromegaly. 4.CVS: +S1/S2, No murmurs or gallops. Peripheral pulses 2+ and equal in all extremities. Brisk capillary refill in all extremities. 5.RESP: Unlabored respiratory effort. Clear to auscultation bilaterally. No wheezes rales or rhonchi 6.GI: Soft, Nontender/Nondistended, No hepatosplenomegaly. No guarding or rebound. 7.MSK: Normocephalic/Atraumatic, Extremities w/o deformity or ttp No cyanosis or clubbing, Normal movement of all extremities 8.Skin: Warm, Dry. No rashes or lesions. 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 Sensation grossly intact, no focal neurologic deficits. 10.Psych: (AAO) x3. Appropriate mood and affect Course Vital Signs Vital signs: Vital Signs Pulse 90 05/02/23 21:46 Respiratory Rate 20 05/02/23 21:46 Blood Pressure 123/70 05/02/23 21:46 Pulse Oximetry 100 05/02/23 21:46 Pulse 90 05/02/23 21:46 Respiratory Rate 20 05/02/23 21:46 Respiratory Effort Normal 05/02/23 21:59 Respiratory Depth Normal 05/02/23 21:59 Respiratory Pattern Normal 05/02/23 21:59 Blood Pressure 123/70 05/02/23 21:46 Blood Pressure Position Sitting 05/02/23 21:46 Pulse Oximetry 100 05/02/23 21:46 Oxygen Delivery Method Room Air 05/02/23 21:46 Oxygen Flow Rate 0 05/02/23 21:46 Pain Level 5 05/02/23 21:46
[2023-05-02] MEDS: Benzonatate 200 MG CAP PO (23:19)
[2023-05-02] MEDS: Budesonide/Formoterol 160/4.5 6 GM 60 PUFF INH IH (23:20)
[2023-05-02] MEDS: predniSONE 20 MG TAB 60 MG PO (23:20)
--- NOTE | 2023-05-03 00:10 | DI.VRAD_ITS ---
PROCEDURE INFORMATION: Exam: XR Chest Exam date and time: 05/02/2023 11:29 PM Age: 27 years old Clinical indication: Patient HX: 5 months of persistent cough TECHNIQUE: Imaging protocol: Radiologic exam of the chest. Views: 2 views. COMPARISON: No relevant prior studies available. FINDINGS: Lungs: Unremarkable. No consolidation. Pleural spaces: Unremarkable. No pleural effusion. No pneumothorax. Heart/Mediastinum: Unremarkable. No cardiomegaly. Bones/joints: Unremarkable. IMPRESSION: No acute findings. Dictated and Authenticated by: Shanta Rowell MD. Ordering:ROBERTO Rachel MD
[2023-05-03 00:16] VITALS: BP 119/67; PULSE 70; RESP 18; TEMP 37.1; O2SAT 95
== END 2023-05-03 00:21 | disposition home or self-care (01) ==
PROVIDERS: Emergency Provider Student in an Organized Health Care Education/Training Program; PCP Internal Medicine
DX: R05.1 Acute cough (principal); F12.10 Cannabis abuse, uncomplicated; Z87.09 Personal history of other diseases of the respiratory system
CPT/HCPCS: 81025; 93005; 99283; 71046; 93010; J7512

== ENCOUNTER 2023-06-19 16:33 | Outpatient (REF) | payer MEDICAID, SELFPAY | END 2023-06-19 16:34 | disposition home or self-care (01) | LOC: LBN 16:33 | PROVIDERS: PCP Internal Medicine; Visit Provider Advanced Practice Midwife | DX: N89.8 Other specified noninflammatory disorders of vagina (principal) | CPT/HCPCS: 87480; 87510; 87660 ==